=== PATIENT | male | born 1940 | race Two or more races ===

== ENCOUNTER 2023-05-06 23:25 | Emergency (ER) | payer OTHER ==
[~2023-05-06] VITALS: Ht 152.4 cm; Wt 63.5 kg
[2023-05-07] MEDS ORDERED: KETOROLAC TROMETHAMINE 60 MG VIAL IM STA (02:08)
[2023-05-07] MEDS ORDERED: OxyCODONE HCL/APAP UD (PERCOCET) PO STA (02:09)
[2023-05-07] MEDS ORDERED: TETANUS & DIPHTHERIA TOX,ADULT 0.5 ML VIAL IM STA (02:10)
== END 2023-05-07 05:10 | disposition home or self-care (01) ==
LOC: ER 23:25
DX: S01.80XA Unspecified open wound of other part of head, initial encounter (principal); T14.8XXA Other injury of unspecified body region, initial encounter; W19.XXXA Unspecified fall, initial encounter; Y93.89 Activity, other specified; Y92.511 Restaurant or cafe as the place of occurrence of the external cause; Y99.8 Other external cause status

== ENCOUNTER → 2023-05-17 | Emergency (ER) | payer OTHER ==
[~2023-05-17] VITALS: Ht 182.9 cm; Wt 65.8 kg
[~2023-05-17] MED LIST: LIPITOR40 M1 PO
== END | disposition home or self-care (01) ==
LOC: ER 14:37
DX: Z48.02 Encounter for removal of sutures (principal)